=== PATIENT | male | born 1990 | race African-American/Black ===

== ENCOUNTER 2016-12-16 18:43 | Inpatient (IN) | payer MEDICAID ==
[~2016-12-16] VITALS: Ht 177.8 cm; Wt 87.7 kg
[2016-12-16] VITALS (11 sets, daily range): BP systolic 87–155; BP diastolic 50–82; PULSE 80–101; RESP 16–18; TEMP 98.2–99; O2SAT 89–100
[~2016-12-16 18:43] MED LIST: SODIUM BICARBONATE 8.4% INJ 50 MEQ/50 ML SYR IV ONE
[2016-12-16] MEDS ORDERED: NOREPINEPHRINE 4 MG/4 ML AMP ONE (18:48)
[2016-12-16 18:54] LABS: MEAN CORPUSCULAR HGB CONC 28.4 % (32.0-36.0)
[2016-12-16] MEDS ORDERED: PIPERACIL-TAZO 4.5 GM PREMIX 100 ML IV ONE (19:00)
[2016-12-16] MEDS ORDERED: SODIUM CHLOR 0.9% 1000 ML INJ 1,000 ML IV ONE (19:00)
[2016-12-16] MEDS ORDERED: VANCOMYCIN INJ 1,000 MG in SODIUM CHLOR 0.9% 250 ML INJ 250 ML IV ONE (19:00)
[2016-12-16] MEDS ORDERED: MIDAZOLAM 100 MG/ML INJ 100 ML ONE (19:04)
[2016-12-16 19:29] LABS: AUTOMATED NEUTROPHIL # 1.9 TH/MM3 (1.8-7.7); BASOPHIL % 0.3 % (0.0-2.0); EOSINOPHIL # 0.1 TH/MM3 (0-0.4); EOSINOPHIL % 1.7 % (0.0-4.0); HEMATOCRIT 56.4 % (39.0-51.0); LYMPH % 56.4 % (9.0-44.0); LYMPHOCYTE # 3.3 TH/MM3 (1.0-4.8); MEAN CELL VOLUME 100.2 FL (80.0-100.0); MEAN CORPUSCULAR HEMOGLOBIN 28.4 PG (27.0-34.0); MONO % 9.2 % (0.0-8.0); NEUT % 32.4 % (16.0-70.0); PLATELET COUNT 200 TH/MM3 (150-450); RED BLOOD COUNT 5.62 MIL/MM3 (4.50-5.90); RED CELL DISTRIBUTION WIDTH 16.3 % (11.6-17.2); WHITE BLOOD COUNT 5.9 TH/MM3 (4.0-11.0)
[2016-12-16] MEDS ORDERED: NOREPINEPHRINE-DEXTROSE DRIP 250 ML IV SCH (19:30)
[2016-12-16] MEDS ORDERED: TERBUTALINE INJ 1 MG/ML AMP SQ PRN (19:30)
[2016-12-16] MEDS ORDERED: MIDAZOLAM 100 MG/ML INJ 100 ML IV SCH (19:30)
[2016-12-16 19:34] LABS: HEMO FLAGS AUTO DIFF
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
[2016-12-16 19:41] LABS: BLOOD GAS BASE EXCESS -28.9 mmol/L (-2-2); BLOOD GAS HCO3 4 mmol/L (22-26); BLOOD GAS METHEMOGLOBIN 0.9 % (0-2); BLOOD GAS O2 HGB SATURATION 98 % (90-100); BLOOD GAS OXYGEN CONTENT 22.3 Vol % (12.0-20.0); BLOOD GAS PCO2 42 mmHg (38-42); BLOOD GAS PO2 417 mmHG (61-120); BLOOD GAS TOTAL HGB 15.7 G/DL (12.0-16.0); CRITICAL VALUE YES; OXYGEN DEVICE VENTILATOR; TEMP CORR TO 98.6
[2016-12-16 19:42] LABS: DRAW SITE RT RADIAL; FIO2 100 %; NUMBER OF ARTERIAL PUNCTURES 1; STAT YES; ULNAR PULSE PRESENT
[2016-12-16] MEDS ORDERED: SODIUM BICARBONATE 8.4% INJ 50 MEQ/50 ML SYR IV PUSH ONE (19:45)
[2016-12-16 19:46] LABS: APTT (PATIENT) 49.9 SEC (24.3-30.1); PROTHROMBIN TIME - PATIENT 11.4 SEC (9.8-11.6)
[2016-12-16 19:51] LABS: BACTERIA, URINE MANY /hpf; BLOOD, URINE NEG (NEG); GLUCOSE,URINE NEG (NEG); KETONE, URINE NEG (NEG); MUCUS URINE FEW /lpf (OCC); NITRITE,URINE NEG (NEG); PH, URINE 5.5 (5.0-8.5); URINE COLOR YELLOW (YELLW/STRAW)
[2016-12-16 19:52] LABS: COMMENT (UR) CATH-CULTURE IND; CULTURE IF INDICATED CATH CULTURE IND
[2016-12-16 20:00] LABS: PLATELET ESTIMATE SMEAR NORMAL (NORMAL); PLATELET MORPHOLOGY NORMAL (NORMAL); SCAN/DIFF AUTO DIFF CONFIRMED
[2016-12-16] MEDS ORDERED: CALCIUM GLUCONATE 10% 1 GM/10 ML VIAL IV PUSH ONE (20:00)
[2016-12-16 20:06] LABS: ALKALINE PHOSPHATASE 63 U/L (45-117); ALT (GPT) 56 U/L (12-78); ANION GAP 33 MEQ/L (5-15); AST (GOT) 89 U/L (15-37); BICARBONATE 9.4 MEQ/L (21.0-32.0); BLOOD UREA NITROGEN 20 MG/DL (7-18); CHLORIDE 108 MEQ/L (98-107); CREATINE KINASE 1738 U/L (39-308); GLOMERULAR FILTRATION RATE 30 ML/MIN (>89); MAGNESIUM 5.8 MG/DL (1.5-2.5); POTASSIUM 4.7 MEQ/L (3.5-5.1); SODIUM (NA) 150 MEQ/L (136-145); TOTAL BILIRUBIN ADULT 0.4 MG/DL (0.2-1.0)
[2016-12-16 20:09] LABS: AMPHETAMINE, URINE NEG (NEG); BARBITURATES, URINE NEG (NEG); COCAINE, URINE NEG (NEG)
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
[2016-12-16] MEDS ORDERED: MAGNESIUM SULFATE INJ 2 GM in SODIUM CHLORIDE 0.9% INJ 96 ML IV PRN (21:00)
[2016-12-16] MEDS ORDERED: CISATRACURIUM BESYLATE 20 MG/10 ML VIAL IVP ONE (21:00)
[2016-12-16] MEDS ORDERED: MAGNESIUM OXIDE 400 MG TAB PO PRN (21:00)
[2016-12-16] MEDS ORDERED: POTASSIUM CHLOR 40 MEQ PREMIX 100 ML IV PRN ×2 (21:00)
[2016-12-16] MEDS ORDERED: ACETAMINOPHEN 650 MG/20.3 ML UDC NG PRN (21:00)
[2016-12-16] MEDS ORDERED: SODIUM PHOSPHATE INJ 30 MMOL in SODIUM CHLOR 0.9% 250 ML INJ 240 ML IV PRN (21:00)
[2016-12-16] MEDS ORDERED: LORazepam 2 MG/ML VIAL IV PRN (21:00)
[2016-12-16] MEDS ORDERED: MAGNESIUM SULFATE INJ 4 GM in SODIUM CHLORIDE 0.9% INJ 92 ML IV PRN (21:00)
[2016-12-16] MEDS ORDERED: MEPERIDINE HCL 25 MG/ML VIAL IVP PRN (21:00)
[2016-12-16] MEDS ORDERED: NOREPINEPHRINE INJ 4 MG in SODIUM CHLOR 0.9% 250 ML INJ 246 ML IV SCH (21:00)
[2016-12-16] MEDS ORDERED: MISCELLANEOUS NURSING INFORMATION XX SCH (21:00)
[2016-12-16] MEDS ORDERED: CHLORHEXIDINE GLUCONATE 2 % 1 PACK (2 CLOTHS) TOP PRN (21:00)
[2016-12-16] MEDS ORDERED: POTASSIUM PHOSPHATE MONOBASIC 500 MG TAB PO/TUBE PRN (21:00)
[2016-12-16] MEDS ORDERED: POTASSIUM CHLORIDE 25 MEQ EFFERVESCENT TAB PO PRN (21:00)
[2016-12-16] MEDS ORDERED: ARTIFICIAL TEARS OPTH OINT 3.5 APPLIC/3.5 GM TUBO EACH EYE PRN (21:00)
[2016-12-16] MEDS ORDERED: POTASSIUM CHLOR 20 MEQ PREMIX 100 ML IV PRN ×2 (21:00)
[2016-12-16] MEDS ORDERED: POTASSIUM PHOSPHATE MONOBASIC 500 MG TAB PO PRN (21:00)
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
[2016-12-16] MEDS ORDERED: levETIRAcetam INJ 1,000 MG in SODIUM CHLORIDE 0.9% INJ 100 ML IV ONE ×2 (21:15→23:15)
[2016-12-16 21:17] LABS: LACTIC ACID GHOST NOT REPORTABLE
[2016-12-16 21:56] LABS: BLOOD GAS BASE EXCESS -4.7 mmol/L (-2-2); BLOOD GAS CARBOXYHEMOGLOBIN 0.3 % (0-4); BLOOD GAS HCO3 21 mmol/L (22-26); BLOOD GAS METHEMOGLOBIN 0.9 % (0-2); BLOOD GAS O2 HGB SATURATION 95 % (90-100); BLOOD GAS OXYGEN CONTENT 24.1 Vol % (12.0-20.0); BLOOD GAS PCO2 50 mmHg (38-42); BLOOD GAS PO2 108 mmHg (61-120); TEMP CORR TO 98.6
[2016-12-16 21:57] LABS: CRITICAL VALUE YES; DRAW SITE ALINE; FIO2 70 %; OXYGEN DEVICE VENTILATOR; STAT YES; ULNAR PULSE PRESENT; VENT SETTINGS PRVC24/400/0.85/+10
[2016-12-16] MEDS ORDERED: ENOXAPARIN SODIUM 40 MG/0.4 ML SYRINGE SQ SCH (22:00)
[2016-12-16] MEDS: PROPOFOL 1000 MG/100 ML INJ 100 ML IV SCH (22:48)
[2016-12-16] MEDS: CISATRACURIUM INJ 100 MG in SODIUM CHLOR 0.9% 250 ML INJ 240 ML IV SCH (22:48)
[2016-12-16] MEDS: SODIUM BICARBONATE 8.4% INJ 150 MEQ in WATER STERILE FOR INJ 850 ML IV SCH (22:49)
[2016-12-16 23:05] LABS: BICARBONATE 21.6 MEQ/L (21.0-32.0); MAGNESIUM 6.9 MG/DL (1.5-2.5)
[2016-12-16 23:06] LABS: POTASSIUM 3.9 MEQ/L (3.5-5.1)
[2016-12-17] VITALS (16 sets, daily range): BP systolic 108–122; BP diastolic 55–78; PULSE 72–95; RESP 20–22; TEMP 91.4; O2SAT 93–100
--- NOTE | 2016-12-17 00:47 | PD.PROCEDR ---
Procedure Note Procedure DX: Cardiac Arrest OP: 1. Insertsion Right Femoral Vein Hypothermia Catheter (74667) 2. Insertion Right Common Femoral Artery Line ([id number]) Procedure: Right groin prepped and draped. Right common femoral vein cannulated, dilated, and wire passed. Cooling catheter passed over wire to 40 cm. Lumens aspirated and flushed. Right common femoral artery cannulated with 20 gauge needle, wire advancedm and cannula inserted to 12 cm. Good waveform observed. Dressing applied to both. Posterior tibial pulse palpable right foot after procedure. Feliz Diana MD Dec 17, 2016 00:47
[2016-12-17 03:36] LABS: BICARBONATE 22.5 MEQ/L (21.0-32.0); MAGNESIUM 5.4 MG/DL (1.5-2.5)
[2016-12-17 03:37] LABS: POTASSIUM 3.4 MEQ/L (3.5-5.1)
[2016-12-17] MEDS: CHLORHEXIDINE GLUCONATE 2 % 1 PACK (2 CLOTHS) TOP SCH (04:00)
[2016-12-17] MEDS: SODIUM BICARBONATE 8.4% INJ 150 MEQ in WATER STERILE FOR INJ 850 ML IV SCH ×3 (04:20→17:50)
[2016-12-17] MEDS: CISATRACURIUM INJ 100 MG in SODIUM CHLOR 0.9% 250 ML INJ 240 ML IV SCH ×3 (04:20→17:49)
[2016-12-17 05:01] LABS: BLOOD GAS BASE EXCESS -5.2 mmol/L (-2-2); BLOOD GAS CARBOXYHEMOGLOBIN 0.3 % (0-4); BLOOD GAS HCO3 21 mmol/L (22-26); BLOOD GAS METHEMOGLOBIN 0.8 % (0-2); BLOOD GAS O2 HGB SATURATION 97 % (90-100); BLOOD GAS OXYGEN CONTENT 25.2 Vol % (12.0-20.0); BLOOD GAS PCO2 47 mmHg (38-42); BLOOD GAS PO2 131 mmHg (61-120); BLOOD GAS TOTAL HGB 18.4 G/DL (12.0-16.0); TEMP CORR TO 98.6
[2016-12-17 05:02] LABS: CRITICAL VALUE YES; DRAW SITE ALINE; FIO2 100 %; OXYGEN DEVICE VENTILATOR; STAT NO; ULNAR PULSE PRESENT; VENT SETTINGS PRVC20/450/+10/0.85
[2016-12-17] MEDS ORDERED: PIPERACIL-TAZO 4.5 GM PREMIX 100 ML IV SCH (08:00)
[2016-12-17] MEDS: RESP: ALBUTEROL 2.5 MG/IPRATROPIUM 0.5 MG NEB (SCH) NEB ×3 (09:35→20:28)
[2016-12-17] MEDS: PROPOFOL 1000 MG/100 ML INJ 100 ML IV SCH ×2 (10:16→15:49)
[2016-12-17] MEDS: levETIRAcetam INJ 500 MG in SODIUM CHLORIDE 0.9% INJ 100 ML IV SCH ×2 (10:16→19:58)
[2016-12-17 11:32] LABS: BICARBONATE 20.9 MEQ/L (21.0-32.0)
[2016-12-17 11:33] LABS: POTASSIUM 3.5 MEQ/L (3.5-5.1)
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
[2016-12-17] MEDS: fentaNYL 2,500 MCG/NS 250 ML IV SCH (15:49)
[2016-12-17] MEDS ORDERED: PANTOPRAZOLE INJ 80 MG in SODIUM CHLORIDE 0.9% INJ 35 ML IV ONE (17:00)
[2016-12-17 17:48] LABS: AUTOMATED NEUTROPHIL # 7.6 TH/MM3 (1.8-7.7); BASOPHIL % 0.1 % (0.0-2.0); HEMATOCRIT 52.7 % (39.0-51.0); LYMPH % 3.6 % (9.0-44.0); LYMPHOCYTE # 0.3 TH/MM3 (1.0-4.8); MEAN CELL VOLUME 84.8 FL (80.0-100.0); MEAN CORPUSCULAR HGB CONC 34.1 % (32.0-36.0); MONO % 3.4 % (0.0-8.0); NEUT % 92.9 % (16.0-70.0); PLATELET COUNT 140 TH/MM3 (150-450); RED BLOOD COUNT 6.21 MIL/MM3 (4.50-5.90); RED CELL DISTRIBUTION WIDTH 14.8 % (11.6-17.2); WHITE BLOOD COUNT 8.2 TH/MM3 (4.0-11.0)
[2016-12-17 17:50] LABS: HEMO FLAGS AUTO DIFF
[2016-12-17] MEDS: PANTOPRAZOLE INJ 80 MG in SODIUM CHLORIDE 0.9% INJ 100 ML IV SCH (17:50)
[2016-12-17 17:59] LABS: APTT (PATIENT) 29.5 SEC (24.3-30.1); INTERNATIONAL NORMALIZED RATIO 1.2 RATIO; PROTHROMBIN TIME - PATIENT 13.6 SEC (9.8-11.6)
[2016-12-17] MEDS: PIPERACIL-TAZO 2.25 GM PREMIX 50 ML IV SCH (18:11)
[2016-12-17 18:29] LABS: BANDS 23 % (0-6); METAMYELOCYTES 1 % (0-1); NEUTROPHIL # MANUAL DIFF 7.6 TH/MM3 (1.8-7.7); PLATELET ESTIMATE SMEAR LOW (NORMAL); PLATELET MORPHOLOGY NORMAL (NORMAL); POLYS (SEG NEUTROPHILS) 69 % (16-70); SCAN/DIFF FINAL DIFF MANUAL; WBC DIFF SAMPLE 100
[2016-12-17 22:07] LABS: BICARBONATE 21.5 MEQ/L (21.0-32.0); POTASSIUM 3.8 MEQ/L (3.5-5.1)
[2016-12-17 22:23] LABS: CALCIUM-PROTEIN CORRECTED 7.3 MG/DL (8.5-10.1)
--- NOTE | 2016-12-17 22:41 | EKG ---
Date Performed: 12/16/2016 Time Performed: 19:04:51 PTAGE: 89 years EKG: Sinus rhythm MILD ST DEPRESSION PEAKED T WAVES ABNORMAL ECG NO PREVIOUS TRACING DOCTOR: Roxane Segura Interpretating Date/Time 12/17/2016 22:39:42
[2016-12-17] MEDS ORDERED: SODIUM CHLOR 0.9% 1000 ML INJ 1,000 ML IV ONE (23:45)
[2016-12-18] VITALS (14 sets, daily range): BP systolic 118–150; BP diastolic 66–97; PULSE 82–117; RESP 22; TEMP 91.4–97.5; O2SAT 95–100
[2016-12-18] MEDS: CISATRACURIUM INJ 100 MG in SODIUM CHLOR 0.9% 250 ML INJ 240 ML IV SCH ×3 (00:29→11:14)
[2016-12-18] MEDS: SODIUM BICARBONATE 8.4% INJ 150 MEQ in WATER STERILE FOR INJ 850 ML IV SCH ×2 (00:29→06:16)
[2016-12-18] MEDS: PIPERACIL-TAZO 2.25 GM PREMIX 50 ML IV SCH ×3 (01:23→18:07)
[2016-12-18] MEDS: PANTOPRAZOLE INJ 80 MG in SODIUM CHLORIDE 0.9% INJ 100 ML IV SCH ×3 (01:23→20:52)
[2016-12-18] MEDS: CHLORHEXIDINE GLUCONATE 2 % 1 PACK (2 CLOTHS) TOP SCH (04:00)
[2016-12-18] MEDS: RESP: ALBUTEROL 2.5 MG/IPRATROPIUM 0.5 MG NEB (SCH) NEB ×4 (04:06→21:36)
[2016-12-18 04:55] LABS: BLOOD GAS BASE EXCESS 0.6 mmol/L (-2-2); BLOOD GAS CARBOXYHEMOGLOBIN 0.8 % (0-4); BLOOD GAS HCO3 24 mmol/L (22-26); BLOOD GAS METHEMOGLOBIN 0.9 % (0-2); BLOOD GAS O2 HGB SATURATION 97 % (90-100); BLOOD GAS OXYGEN CONTENT 21.6 Vol % (12.0-20.0); BLOOD GAS PCO2 33 mmHg (38-42); BLOOD GAS PO2 126 mmHg (61-120); BLOOD GAS TOTAL HGB 15.7 G/DL (12.0-16.0); CRITICAL VALUE NO; DRAW SITE ALINE; FIO2 50 %; OXYGEN DEVICE VENTILATOR; STAT NO; TEMP CORR TO 98.6; ULNAR PULSE PRESENT; VENT SETTINGS PRVC22/450/0.85/+10
[2016-12-18 07:08] LABS: AUTOMATED NEUTROPHIL # 7.1 TH/MM3 (1.8-7.7); BASOPHIL % 0.1 % (0.0-2.0); HEMATOCRIT 44.5 % (39.0-51.0); LYMPH % 5.9 % (9.0-44.0); LYMPHOCYTE # 0.5 TH/MM3 (1.0-4.8); MEAN CELL VOLUME 83.4 FL (80.0-100.0); MEAN CORPUSCULAR HEMOGLOBIN 28.8 PG (27.0-34.0); MEAN CORPUSCULAR HGB CONC 34.5 % (32.0-36.0); MONO % 4.4 % (0.0-8.0); NEUT % 89.6 % (16.0-70.0); PLATELET COUNT 119 TH/MM3 (150-450); RED BLOOD COUNT 5.34 MIL/MM3 (4.50-5.90); RED CELL DISTRIBUTION WIDTH 15.1 % (11.6-17.2); WHITE BLOOD COUNT 7.9 TH/MM3 (4.0-11.0)
[2016-12-18 07:09] LABS: HEMO FLAGS AUTO DIFF
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
[2016-12-18 07:36] LABS: BICARBONATE 27.1 MEQ/L (21.0-32.0); POTASSIUM 3.3 MEQ/L (3.5-5.1); TOTAL BILIRUBIN ADULT 0.8 MG/DL (0.2-1.0)
[2016-12-18 07:44] LABS: CALCIUM-PROTEIN CORRECTED 7.1 MG/DL (8.5-10.1)
[2016-12-18 07:51] LABS: BANDS 28 % (0-6); CORRECTED NUCLEATED RBC 1 /100 WBC (0-0); NEUTROPHIL # MANUAL DIFF 7.1 TH/MM3 (1.8-7.7); POLYS (SEG NEUTROPHILS) 62 % (16-70); WBC DIFF SAMPLE 100
[2016-12-18 07:52] LABS: PLATELET ESTIMATE SMEAR LOW (NORMAL); PLATELET MORPHOLOGY NORMAL (NORMAL); SCAN/DIFF FINAL DIFF MANUAL
[2016-12-18] MEDS ORDERED: SODIUM CHLOR 0.9% 1000 ML INJ 1,000 ML IV ONE (08:00)
[2016-12-18 08:01] LABS: MAGNESIUM 3.4 MG/DL (1.5-2.5)
[2016-12-18] MEDS ORDERED: CALCIUM GLUCONATE INJ 2 GM in SODIUM CHLORIDE 0.9% INJ 100 ML IV ONE (08:15)
[2016-12-18] MEDS: levETIRAcetam INJ 500 MG in SODIUM CHLORIDE 0.9% INJ 100 ML IV SCH ×2 (08:31→20:04)
[2016-12-18 10:23] LABS: C. DIFF EPI 027 PRESUMPTIVE NEGATIVE (NEGATIVE); C. DIFF TOXIN PCR NEGATIVE (NEGATIVE)
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
[2016-12-18 14:48] LABS: BICARBONATE 28.7 MEQ/L (21.0-32.0); CALCIUM-PROTEIN CORRECTED 7.5 MG/DL (8.5-10.1); POTASSIUM 3.2 MEQ/L (3.5-5.1); TOTAL BILIRUBIN ADULT 0.8 MG/DL (0.2-1.0)
[2016-12-18] MEDS: PROPOFOL 1000 MG/100 ML INJ 100 ML IV SCH ×2 (15:36→20:05)
[2016-12-18] MEDS ORDERED: LORazepam 2 MG/ML VIAL IV ONE (15:45)
[2016-12-18] MEDS: fentaNYL 2,500 MCG/NS 250 ML IV SCH (20:05)
[2016-12-19] VITALS (15 sets, daily range): BP systolic 112–158; BP diastolic 56–96; PULSE 101–120; RESP 22; TEMP 97.9–98.2; O2SAT 97–100
[2016-12-19] MEDS: PROPOFOL 1000 MG/100 ML INJ 100 ML IV SCH ×4 (00:23→11:35)
[2016-12-19] MEDS: PIPERACIL-TAZO 2.25 GM PREMIX 50 ML IV SCH ×3 (00:24→17:04)
[2016-12-19] MEDS: RESP: ALBUTEROL 2.5 MG/IPRATROPIUM 0.5 MG NEB (SCH) NEB ×4 (03:30→20:41)
[2016-12-19] MEDS: CHLORHEXIDINE GLUCONATE 2 % 1 PACK (2 CLOTHS) TOP SCH (04:00)
--- NOTE | 2016-12-19 05:41 | RADRPT ---
EXAM DATE/TIME: 12/19/2016 05:02 [facility] COMPARISON: CHEST SINGLE AP, December 18, 2016, 6:51. INDICATIONS : Respiratory distress. MEDICAL HISTORY : None. SURGICAL HISTORY : None. ENCOUNTER: Subsequent ACUITY: 3 days PAIN SCORE: Non-responsive. LOCATION: Bilateral chest FINDINGS: The cardiac silhouette is normal in transverse diameter. Support lines and tubes are in satisfactory position. The left lung is free of acute parenchymal opacity. There is patchy alveolar disease on the right compatible with edema or pneumonia. CONCLUSION: 1. Diffuse right-sided edema versus pneumonia. The findings have worsened when compared with the prio r examination. Fermin Ross MD on December 19, 2016 at 5:39 Board Certified Radiologist. This report was verified electronically.
[2016-12-19 06:24] LABS: AUTOMATED NEUTROPHIL # 9.1 TH/MM3 (1.8-7.7); BASOPHIL # 0.1 TH/MM3 (0-0.2); BASOPHIL % 0.5 % (0.0-2.0); EOSINOPHIL % 0.2 % (0.0-4.0); HEMATOCRIT 43.3 % (39.0-51.0); LYMPH % 7.9 % (9.0-44.0); LYMPHOCYTE # 0.8 TH/MM3 (1.0-4.8); MEAN CELL VOLUME 83.8 FL (80.0-100.0); MEAN CORPUSCULAR HEMOGLOBIN 28.7 PG (27.0-34.0); MEAN CORPUSCULAR HGB CONC 34.2 % (32.0-36.0); MONO % 3.7 % (0.0-8.0); NEUT % 87.7 % (16.0-70.0); PLATELET COUNT 96 TH/MM3 (150-450); RED BLOOD COUNT 5.16 MIL/MM3 (4.50-5.90); RED CELL DISTRIBUTION WIDTH 15.2 % (11.6-17.2); WHITE BLOOD COUNT 10.3 TH/MM3 (4.0-11.0)
[2016-12-19 06:29] LABS: HEMO FLAGS AUTO DIFF
[2016-12-19 06:58] LABS: MAGNESIUM 2.6 MG/DL (1.5-2.5); POTASSIUM 4.1 MEQ/L (3.5-5.1); TOTAL BILIRUBIN ADULT 0.7 MG/DL (0.2-1.0)
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
[2016-12-19 07:05] LABS: CALCIUM-PROTEIN CORRECTED 6.8 MG/DL (8.5-10.1)
[2016-12-19] MEDS: fentaNYL 2,500 MCG/NS 250 ML IV SCH (07:56)
[2016-12-19] MEDS: levETIRAcetam INJ 500 MG in SODIUM CHLORIDE 0.9% INJ 100 ML IV SCH ×2 (07:56→08:00)
[2016-12-19] MEDS: PANTOPRAZOLE INJ 80 MG in SODIUM CHLORIDE 0.9% INJ 100 ML IV SCH (07:56)
[2016-12-19 08:49] LABS: BANDS 31 % (0-6); METAMYELOCYTES 42 % (0-1); MYELOCYTES 4 % (0-0); POLYS (SEG NEUTROPHILS) 20 % (16-70); WBC DIFF SAMPLE 100
[2016-12-19 08:50] LABS: PLATELET ESTIMATE SMEAR LOW (NORMAL); PLATELET MORPHOLOGY NORMAL (NORMAL); SCAN/DIFF FINAL DIFF MANUAL
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
[2016-12-19] MEDS ORDERED: CALCIUM GLUCONATE IV ONE (14:00)
[2016-12-19] MEDS ORDERED: SODIUM CHLORIDE 0.9% IV ONE (14:00)
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
[2016-12-19] MEDS: LABETALOL HCL 100 MG/20 ML VIAL IV PUSH PRN (16:19)
[2016-12-19] MEDS: BUMETANIDE INJ 1 MG/4 ML VIAL IV PUSH SCH (17:04)
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
[2016-12-19] MEDS: hydrALAZINE HCL 20 MG/ML VIAL IV PUSH PRN (23:51)
[2016-12-20] VITALS (16 sets, daily range): BP systolic 125–172; BP diastolic 74–97; PULSE 89–116; RESP 22–27; TEMP 97.9–98.8; O2SAT 93–100
[2016-12-20] MEDS: PIPERACIL-TAZO 2.25 GM PREMIX 50 ML IV SCH ×3 (01:46→18:42)
[2016-12-20] MEDS: RESP: ALBUTEROL 2.5 MG/IPRATROPIUM 0.5 MG NEB (SCH) NEB ×4 (03:21→20:34)
[2016-12-20] MEDS: CHLORHEXIDINE GLUCONATE 2 % 1 PACK (2 CLOTHS) TOP SCH (04:00)
[2016-12-20 05:41] LABS: BICARBONATE 26.2 MEQ/L (21.0-32.0); POTASSIUM 3.8 MEQ/L (3.5-5.1)
[2016-12-20] MEDS: LABETALOL HCL 100 MG/20 ML VIAL IV PUSH PRN (06:00)
[2016-12-20 06:19] LABS: CALCIUM-PROTEIN CORRECTED 7.9 MG/DL (8.5-10.1)
[2016-12-20] MEDS: BUMETANIDE INJ 1 MG/4 ML VIAL IV PUSH SCH ×2 (08:27→18:42)
[2016-12-20] MEDS: levETIRAcetam INJ 500 MG in SODIUM CHLORIDE 0.9% INJ 100 ML IV SCH ×2 (08:27→19:54)
[2016-12-20] MEDS: hydrALAZINE HCL 20 MG/ML VIAL IV PUSH PRN (08:37)
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
[2016-12-20] MEDS: LABETALOL HCL 200 MG TAB PO SCH ×2 (10:45→18:42)
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
[2016-12-20 11:58] LABS: CALCIUM-PROTEIN CORRECTED 7.7 MG/DL (8.5-10.1); POTASSIUM 4.2 MEQ/L (3.5-5.1); TOTAL BILIRUBIN ADULT 0.8 MG/DL (0.2-1.0)
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
[2016-12-20] MEDS ORDERED: SODIUM CHLOR 0.9% 1000 ML INJ 1,000 ML IV PRN ×2 (14:58)
[2016-12-20] MEDS ORDERED: HEPARIN SODIUM - IV 10,000 UNITS/10 ML VIAL IVF PRN (15:00)
[2016-12-20] MEDS ORDERED: cloNIDine HCL 0.1 MG TAB PO PRN (15:00)
[2016-12-20] MEDS ORDERED: SODIUM CHLORIDE 0.9% FLUSH 10 ML FLUSH IV FLUSH PRN (15:00)
[2016-12-20] MEDS ORDERED: NITROGLYCERIN 0.4 MG SL 25 TABS/BTL SL PRN (15:00)
[2016-12-20] MEDS ORDERED: ONDANSETRON HCL 4 MG/2 ML VIAL IV PRN (15:00)
[2016-12-20] MEDS ORDERED: GELATIN 12 MM/7 MM FOAM TOP PRN (15:00)
[2016-12-20] MEDS ORDERED: diphenhydrAMINE HCL 25 MG CAP PO PRN (15:00)
[2016-12-20] MEDS ORDERED: ACETAMINOPHEN 325 MG TAB PO PRN (15:00)
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
--- NOTE | 2016-12-20 16:47 | HHI.PR ---
Subjective Remarks Follow up exam Informed change in pupil size by nurse. S/P MRI brain Off sedation. Objective Vital Signs Date Time Temp Pulse Resp B/P Pulse Ox O2 Delivery O2 Flow Rate FiO2 12/20/16 16:00 98.1 107 27 143/79 98 12/20/16 16:00 35 12/20/16 15:00 104 12/20/16 13:40 100 100 12/20/16 12:00 35 12/20/16 12:00 98.6 110 22 145/79 93 12/20/16 11:51 93 40 12/20/16 08:00 98.2 98 25 172/97 95 12/20/16 08:00 96 35 12/20/16 08:00 35 12/20/16 07:00 97 12/20/16 06:18 100 35 12/20/16 04:00 40 12/20/16 04:00 98.2 89 22 169/96 100 12/20/16 03:23 100 35 12/20/16 00:08 97 40 12/20/16 00:00 40 12/20/16 00:00 97.9 116 22 158/92 98 12/19/16 23:00 114 12/19/16 20:47 100 40 12/19/16 20:00 97.9 106 22 158/96 100 12/19/16 20:00 40 12/19/16 16:44 100 40 I/O 12/19/16 12/19/16 12/19/16 12/20/16 12/20/16 12/20/16 07:00 15:00 23:00 07:00 15:00 23:00 Intake Total 651 ml 586 ml 272 ml 78 ml 223 ml Output Total 350 ml 150 ml 350 ml 500 ml 650 ml Balance 301 ml 436 ml -78 ml -422 ml -427 ml Intake IV Total 651 ml 586 ml 272 ml 78 ml 173 ml Tube Irrigant 50 ml Output Urine Total 200 ml 150 ml 350 ml 500 ml 500 ml Stool Total 100 ml 0 ml 0 ml 0 ml 150 ml Gastric Drainage Total 50 ml 0 ml 0 ml 0 ml pt is intubated on the vent.off sedation left pupil 4mm nr right pupil 6mm nr overbreaths the vent 1-2 breaths left corneal only no ocr no w/d pain in ue no spontaneous eye opening does not follow commands minimal w/d toes feet with noxious stimuli tone decreased Result Diagram: 12/19/16 0611 12/20/16 1105 Imaging mri brain c/w global anoxic injury eeg c/w bipleds,no seizures. Assessment and Plan Assessment and Plan severe anoxic encephalopathy -given the exam of the patient there is no recovery neurologically from this event.Patient likely will progress to brain . Yesenia Reyes MD December 20, 2016 16:47
--- NOTE | 2016-12-20 21:40 | PD.PROCEDR ---
Procedure Note Procedure HD Left IJ A time-out was completed verifying correct patient, procedure, site, positioning , and special equipment if applicable. The patient was placed in a dependent position appropriate for central line placement based on the vein to be cannulated. The patients left neck was prepped and draped in sterile fashion. 1 % Lidocaine was used to anesthetize the surrounding skin area. A double lumen hemodialysis catheter was introduced into the the internal jugular vein using the Seldinger technique and under ultrasound guidance. The catheter was threaded smoothly over the guide wire and appropriate blood return was obtained. Each lumen of the catheter was evacuated of air and flushed with sterile saline. The catheter was then sutured in place to the skin and a sterile dressing applied. Perfusion to the extremity distal to the point of catheter insertion was checked and found to be adequate. Estimated Blood Loss: 1ml The patient tolerated the procedure well and there were no complications. Sumanth Avalos MD December 20, 2016 21:40
--- NOTE | 2016-12-20 21:59 | RADRPT ---
EXAM DATE/TIME: 12/20/2016 21:43 [facility] COMPARISON: CHEST SINGLE AP, December 19, 2016, 5:02. INDICATIONS : Central line placement. MEDICAL HISTORY : None. SURGICAL HISTORY : None. ENCOUNTER: Subsequent ACUITY: 4 - 6 days PAIN SCORE: Non-responsive. LOCATION: Bilateral chest FINDINGS: A single view of the chest demonstrates the lungs to be symmetrically aerated without evidence of mas s or effusion. There is mild patchy opacity in the perihilar regions and lung bases. There is been in terval placement of a left internal jugular central venous line with the tip projected over the super ior vena cava. There is no pneumothorax. The cardiomediastinal contours are unremarkable. Osseous st ructures are intact. CONCLUSION: 1. Interval placement of left internal jugular central venous line with no pneumothorax. 2. Mild hazy opacity in the perihilar regions and lung bases. Darion Alejandro MD on December 20, 2016 at 21:56 Board Certified Radiologist. This report was verified electronically.
[2016-12-21] VITALS (17 sets, daily range): BP systolic 120–162; BP diastolic 73–98; PULSE 96–109; RESP 18–30; TEMP 97.5–98.8; O2SAT 98–100
[2016-12-21] MEDS: PIPERACIL-TAZO 2.25 GM PREMIX 50 ML IV SCH ×3 (02:54→17:22)
[2016-12-21] MEDS: LABETALOL HCL 200 MG TAB PO SCH ×3 (02:55→18:02)
[2016-12-21] MEDS: RESP: ALBUTEROL 2.5 MG/IPRATROPIUM 0.5 MG NEB (SCH) NEB ×2 (03:23→08:08)
[2016-12-21] MEDS: CHLORHEXIDINE GLUCONATE 2 % 1 PACK (2 CLOTHS) TOP SCH (04:00)
[2016-12-21 07:42] LABS: BICARBONATE 26.8 MEQ/L (21.0-32.0); POTASSIUM 4.3 MEQ/L (3.5-5.1)
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
[2016-12-21] MEDS: BUMETANIDE INJ 1 MG/4 ML VIAL IV PUSH SCH ×2 (09:00→17:22)
[2016-12-21] MEDS: GENTAMICIN SULFATE (DIALYSIS USE ONLY) 20 MG/2 ML VIAL IV PRN (10:53)
[2016-12-21] MEDS: HEPARIN SODIUM - IV 10,000 UNITS/10 ML VIAL PRN (10:53)
[2016-12-21] MEDS: levETIRAcetam INJ 500 MG in SODIUM CHLORIDE 0.9% INJ 100 ML IV SCH ×2 (11:43→20:10)
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
[2016-12-21] MEDS: hydrALAZINE HCL 20 MG/ML VIAL IV PUSH PRN ×2 (16:43→21:53)
[2016-12-22] VITALS (14 sets, daily range): BP systolic 128–175; BP diastolic 73–97; PULSE 96–107; RESP 18; TEMP 97.3–98.2; O2SAT 92–100
[2016-12-22] MEDS: PIPERACIL-TAZO 2.25 GM PREMIX 50 ML IV SCH ×3 (01:07→17:49)
[2016-12-22] MEDS: LABETALOL HCL 200 MG TAB PO SCH ×3 (01:13→18:14)
[2016-12-22] MEDS: CHLORHEXIDINE GLUCONATE 2 % 1 PACK (2 CLOTHS) TOP SCH (04:00)
[2016-12-22 06:39] LABS: BICARBONATE 27.8 MEQ/L (21.0-32.0); POTASSIUM 4.1 MEQ/L (3.5-5.1)
[2016-12-22] MEDS: BUMETANIDE INJ 1 MG/4 ML VIAL IV PUSH SCH ×2 (08:27→17:49)
[2016-12-22] MEDS: levETIRAcetam INJ 500 MG in SODIUM CHLORIDE 0.9% INJ 100 ML IV SCH ×2 (08:28→20:24)
[2016-12-22] MEDS: LABETALOL HCL 100 MG/20 ML VIAL IV PUSH PRN (08:37)
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
[2016-12-22] MEDS: MANNITOL 12.5 GM/50 ML VIAL IV PRN (09:53)
[2016-12-22] MEDS: ALBUMIN HUMAN 25% 25 GM/100 ML BAGP IV PRN ×2 (10:00→10:01)
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
[2016-12-22] MEDS: GENTAMICIN SULFATE (DIALYSIS USE ONLY) 20 MG/2 ML VIAL IV PRN (11:50)
[2016-12-22] MEDS: HEPARIN SODIUM - IV 10,000 UNITS/10 ML VIAL PRN (11:50)
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
[2016-12-23] VITALS (18 sets, daily range): BP systolic 110–128; BP diastolic 58–72; PULSE 94–105; RESP 12–18; TEMP 97.3–99.9; O2SAT 93–100
[2016-12-23] MEDS: PIPERACIL-TAZO 2.25 GM PREMIX 50 ML IV SCH ×3 (03:12→17:48)
[2016-12-23] MEDS: LABETALOL HCL 200 MG TAB PO SCH ×3 (03:14→18:30)
[2016-12-23] MEDS: RESP: ALBUTEROL 2.5 MG/IPRATROPIUM 0.5 MG NEB (PRN) NEB ×2 (03:49→20:12)
[2016-12-23] MEDS: CHLORHEXIDINE GLUCONATE 2 % 1 PACK (2 CLOTHS) TOP SCH (03:58)
[2016-12-23 06:21] LABS: BICARBONATE 28.2 MEQ/L (21.0-32.0); POTASSIUM 4.5 MEQ/L (3.5-5.1)
[2016-12-23] MEDS: BUMETANIDE INJ 1 MG/4 ML VIAL IV PUSH SCH (08:08)
[2016-12-23] MEDS: levETIRAcetam INJ 500 MG in SODIUM CHLORIDE 0.9% INJ 100 ML IV SCH ×2 (08:08→21:50)
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
[2016-12-23 12:02] LABS: AUTOMATED NEUTROPHIL # 7.7 TH/MM3 (1.8-7.7); BASOPHIL % 0.2 % (0.0-2.0); EOSINOPHIL # 0.3 TH/MM3 (0-0.4); EOSINOPHIL % 3.1 % (0.0-4.0); HEMATOCRIT 31.9 % (39.0-51.0); LYMPH % 7.6 % (9.0-44.0); LYMPHOCYTE # 0.7 TH/MM3 (1.0-4.8); MEAN CELL VOLUME 86.4 FL (80.0-100.0); MEAN CORPUSCULAR HEMOGLOBIN 29.5 PG (27.0-34.0); MEAN CORPUSCULAR HGB CONC 34.1 % (32.0-36.0); MONO % 5.9 % (0.0-8.0); NEUT % 83.2 % (16.0-70.0); PLATELET COUNT 93 TH/MM3 (150-450); RED BLOOD COUNT 3.69 MIL/MM3 (4.50-5.90); RED CELL DISTRIBUTION WIDTH 14.3 % (11.6-17.2); WHITE BLOOD COUNT 9.3 TH/MM3 (4.0-11.0)
[2016-12-23 12:03] LABS: HEMO FLAGS AUTO DIFF
[2016-12-23 12:10] LABS: BLOOD GAS BASE EXCESS 2.5 mmol/L (-2-2); BLOOD GAS CARBOXYHEMOGLOBIN 1.3 % (0-4); BLOOD GAS HCO3 27 mmol/L (22-26); BLOOD GAS METHEMOGLOBIN 0.9 % (0-2); BLOOD GAS O2 HGB SATURATION 94 % (90-100); BLOOD GAS OXYGEN CONTENT 14.4 Vol % (12.0-20.0); BLOOD GAS PCO2 49 mmHg (38-42); BLOOD GAS PO2 89 mmHg (61-120); BLOOD GAS TOTAL HGB 10.9 G/DL (12.0-16.0); CRITICAL VALUE NO; OXYGEN DEVICE VENTILATOR; TEMP CORR TO 98.6
[2016-12-23 12:11] LABS: DRAW SITE ART LINE; FIO2 35 %; STAT NO; VENT SETTINGS PRVC/AC
--- NOTE | 2016-12-23 12:13 | RADRPT ---
EXAM DATE/TIME: 12/23/2016 11:33 [facility] COMPARISON: CHEST SINGLE AP, December 20, 2016, 21:43. INDICATIONS : Shortness of breath MEDICAL HISTORY : None. SURGICAL HISTORY : None. ENCOUNTER: Subsequent ACUITY: 4 - 6 days PAIN SCORE: Non-responsive. LOCATION: Bilateral chest FINDINGS: A single AP erect view of the chest was obtained and again demonstrates an endotracheal tube in place with the tip 4 cm above the deysi. A nasogastric tube remains in place and is seen coursing through the esophagus and into the stomach. The left internal jugular central venous line remains in place. There is increased opacity in both lung bases and the costophrenic angles now appear blunted. The hea rt size is at the upper limits of normal. There are multiple overlying electrocardiogram leads. CONCLUSION: 1. Increased opacity at the lung bases with apparent bilateral effusions. 2. The patient remains intubated. Darion Alejandro MD on December 23, 2016 at 12:09 Board Certified Radiologist. This report was verified electronically.
[2016-12-23 12:19] LABS: ALT (GPT) 83 U/L (12-78); ANION GAP 13 MEQ/L (5-15); AST (GOT) 105 U/L (15-37); BICARBONATE 29.6 MEQ/L (21.0-32.0); BLOOD UREA NITROGEN 124 MG/DL (7-18); CHLORIDE 104 MEQ/L (98-107); GLOMERULAR FILTRATION RATE 5 ML/MIN (>89); POTASSIUM 4.8 MEQ/L (3.5-5.1); SODIUM (NA) 147 MEQ/L (136-145)
[2016-12-23 12:20] LABS: ALKALINE PHOSPHATASE 147 U/L (45-117); TOTAL BILIRUBIN ADULT 1.7 MG/DL (0.2-1.0)
[2016-12-23 12:37] LABS: BANDS 23 % (0-6); DOHLE BODIES PRESENT (NONE SEEN); EOSINOPHILS 4 % (0-4); METAMYELOCYTES 1 % (0-1); NEUTROPHIL # MANUAL DIFF 7.6 TH/MM3 (1.8-7.7); POLYS (SEG NEUTROPHILS) 58 % (16-70); WBC DIFF SAMPLE 100
[2016-12-23 12:38] LABS: PLATELET ESTIMATE SMEAR LOW (NORMAL); PLATELET MORPHOLOGY NORMAL (NORMAL); SCAN/DIFF FINAL DIFF MANUAL; TOXIC GRANULATION 1+ (NORMAL)
[2016-12-23] MEDS ORDERED: NOREPINEPHRINE 4 MG/D5W 250 ML IV SCH (15:00)
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
[2016-12-23] MEDS ORDERED: NOREPINEPHRINE 4 MG/4 ML AMP ONE (15:58)
[2016-12-24] VITALS (18 sets, daily range): BP systolic 100–143; BP diastolic 59–95; PULSE 94–120; RESP 12–18; TEMP 98.4–99.9; O2SAT 90–98
[2016-12-24] MEDS: LABETALOL HCL 200 MG TAB PO SCH ×3 (03:00→19:05)
[2016-12-24] MEDS: PIPERACIL-TAZO 2.25 GM PREMIX 50 ML IV SCH ×3 (03:11→17:57)
[2016-12-24] MEDS: CHLORHEXIDINE GLUCONATE 2 % 1 PACK (2 CLOTHS) TOP SCH (04:00)
[2016-12-24] MEDS: RESP: ALBUTEROL 2.5 MG/IPRATROPIUM 0.5 MG NEB (PRN) NEB ×2 (04:39→20:29)
[2016-12-24] MEDS: NOREPINEPHRINE 4 MG/NS 250 ML IV SCH ×4 (06:04→15:23)
[2016-12-24 07:32] LABS: AUTOMATED NEUTROPHIL # 10.6 TH/MM3 (1.8-7.7); BASOPHIL % 0.4 % (0.0-2.0); EOSINOPHIL # 0.2 TH/MM3 (0-0.4); EOSINOPHIL % 1.3 % (0.0-4.0); LYMPH % 4.8 % (9.0-44.0); LYMPHOCYTE # 0.6 TH/MM3 (1.0-4.8); MEAN CELL VOLUME 87.5 FL (80.0-100.0); MEAN CORPUSCULAR HEMOGLOBIN 28.4 PG (27.0-34.0); MEAN CORPUSCULAR HGB CONC 32.5 % (32.0-36.0); MONO % 5.1 % (0.0-8.0); NEUT % 88.4 % (16.0-70.0); PLATELET COUNT 114 TH/MM3 (150-450); RED BLOOD COUNT 3.89 MIL/MM3 (4.50-5.90); RED CELL DISTRIBUTION WIDTH 14.4 % (11.6-17.2)
[2016-12-24 07:37] LABS: HEMO FLAGS AUTO DIFF
[2016-12-24 08:18] LABS: BICARBONATE 28.9 MEQ/L (21.0-32.0); POTASSIUM 8.1 MEQ/L (3.5-5.1)
[2016-12-24] MEDS: levETIRAcetam INJ 500 MG in SODIUM CHLORIDE 0.9% INJ 100 ML IV SCH ×2 (08:18→21:49)
[2016-12-24] MEDS ORDERED: SODIUM BICARBONATE 8.4% INJ 50 MEQ/50 ML SYR IV ONE (09:00)
[2016-12-24] MEDS ORDERED: SODIUM BICARBONATE 8.4% SOLN 50 MEQ/50 ML VIAL IV ONE (09:00)
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
[2016-12-24 10:40] LABS: BANDS 16 % (0-6); CORRECTED NUCLEATED RBC 2 /100 WBC (0-0); EOSINOPHILS 2 % (0-4); MYELOCYTES 2 % (0-0); NEUTROPHIL # MANUAL DIFF 10.3 TH/MM3 (1.8-7.7); POLYS (SEG NEUTROPHILS) 68 % (16-70); WBC DIFF SAMPLE 100
[2016-12-24 10:41] LABS: DOHLE BODIES PRESENT (NONE SEEN)
[2016-12-24 10:42] LABS: PLATELET ESTIMATE SMEAR LOW (NORMAL); PLATELET MORPHOLOGY NORMAL (NORMAL); SCAN/DIFF FINAL DIFF MANUAL
[2016-12-24] MEDS ORDERED: SODIUM POLYSTYRENE SULFONATE SUSP 15 GM/60 ML CUP NG ONE (11:00)
[2016-12-24] MEDS: LABETALOL HCL 100 MG/20 ML VIAL IV PUSH PRN (14:47)
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
[2016-12-24 14:54] LABS: BLOOD GAS BASE EXCESS 1.5 mmol/L (-2-2); BLOOD GAS CARBOXYHEMOGLOBIN 0.9 % (0-4); BLOOD GAS HCO3 28 mmol/L (22-26); BLOOD GAS METHEMOGLOBIN 1.1 % (0-2); BLOOD GAS O2 HGB SATURATION 95 % (90-100); BLOOD GAS OXYGEN CONTENT 15.1 Vol % (12.0-20.0); BLOOD GAS PCO2 65 mmHg (38-42); BLOOD GAS PO2 99 mmHg (61-120); BLOOD GAS TOTAL HGB 11.2 G/DL (12.0-16.0); TEMP CORR TO 98.6
[2016-12-24 14:55] LABS: CRITICAL VALUE YES; OXYGEN DEVICE VENT
[2016-12-24 14:56] LABS: DRAW SITE ALINE; FIO2 100 %; STAT YES; VENT SETTINGS PRVC/12/450/10/.85IT
[2016-12-24 15:04] LABS: BICARBONATE 32.3 MEQ/L (21.0-32.0)
[2016-12-24 15:06] LABS: POTASSIUM 8.2 MEQ/L (3.5-5.1)
[2016-12-24 20:44] LABS: ALKALINE PHOSPHATASE 237 U/L (45-117); ALT (GPT) 72 U/L (12-78); ANION GAP 15 MEQ/L (5-15); AST (GOT) 83 U/L (15-37); BICARBONATE 29.4 MEQ/L (21.0-32.0); BLOOD UREA NITROGEN 115 MG/DL (7-18); CHLORIDE 99 MEQ/L (98-107); GLOMERULAR FILTRATION RATE 5 ML/MIN (>89); POTASSIUM 6.5 MEQ/L (3.5-5.1); SODIUM (NA) 143 MEQ/L (136-145); TOTAL BILIRUBIN ADULT 1.3 MG/DL (0.2-1.0)
[2016-12-24] MEDS: SODIUM POLYSTYRENE SULFONATE SUSP 15 GM/60 ML CUP NG SCH (21:50)
[2016-12-25] VITALS (19 sets, daily range): BP systolic 104–133; BP diastolic 64–84; PULSE 116–138; RESP 17–19; TEMP 99–100.8; O2SAT 92–98
[2016-12-25] MEDS: CHLORHEXIDINE GLUCONATE 2 % 1 PACK (2 CLOTHS) TOP SCH (03:00)
[2016-12-25] MEDS: LABETALOL HCL 200 MG TAB PO SCH ×3 (03:29→18:48)
[2016-12-25] MEDS: PIPERACIL-TAZO 2.25 GM PREMIX 50 ML IV SCH ×3 (03:30→18:47)
[2016-12-25] MEDS: SODIUM POLYSTYRENE SULFONATE SUSP 15 GM/60 ML CUP NG SCH ×2 (03:30→06:22)
[2016-12-25 05:12] LABS: BICARBONATE 26.7 MEQ/L (21.0-32.0)
[2016-12-25 05:17] LABS: POTASSIUM 6.9 MEQ/L (3.5-5.1)
[2016-12-25] MEDS: ALBUMIN HUMAN 25% 25 GM/100 ML BAGP IV PRN (09:24)
[2016-12-25] MEDS: HEPARIN SODIUM - IV 10,000 UNITS/10 ML VIAL PRN (09:24)
[2016-12-25] MEDS: GENTAMICIN SULFATE (DIALYSIS USE ONLY) 20 MG/2 ML VIAL IV PRN (09:25)
[2016-12-25] MEDS: SODIUM CHLOR 0.9% 1000 ML INJ 1,000 ML IV PRN (09:26)
[2016-12-25] MEDS: MANNITOL 12.5 GM/50 ML VIAL IV PRN (09:26)
[2016-12-25] MEDS: levETIRAcetam INJ 500 MG in SODIUM CHLORIDE 0.9% INJ 100 ML IV SCH ×2 (09:49→21:54)
[2016-12-25] MEDS ORDERED: INFLUENZA VIRUS VACCINE (QUADRIVALENT) 0.5 ML SYR IM ONE (10:00)
[2016-12-25] MEDS ORDERED: PNEUMOCOCCAL POLYVALENT INJ 25 MCG/0.5 ML SYR IM ONE (10:00)
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
[2016-12-25] MEDS ORDERED: METOPROLOL TARTRATE 5 MG/5 ML VIAL IV PUSH ONE (18:15)
[2016-12-25] MEDS: NOREPINEPHRINE 4 MG/NS 250 ML IV SCH ×2 (18:47)
[2016-12-25] MEDS: RESP: ALBUTEROL 2.5 MG/IPRATROPIUM 0.5 MG NEB (PRN) NEB ×2 (20:30→23:32)
[2016-12-26] VITALS (19 sets, daily range): BP systolic 115–155; BP diastolic 68–95; PULSE 125–141; RESP 18–22; TEMP 99.7–101.7; O2SAT 94–99
[2016-12-26] MEDS: LABETALOL HCL 200 MG TAB PO SCH ×3 (02:41→18:39)
[2016-12-26] MEDS: PIPERACIL-TAZO 2.25 GM PREMIX 50 ML IV SCH ×3 (02:41→18:12)
[2016-12-26] MEDS: RESP: ALBUTEROL 2.5 MG/IPRATROPIUM 0.5 MG NEB (PRN) NEB ×2 (03:42→08:04)
[2016-12-26] MEDS: CHLORHEXIDINE GLUCONATE 2 % 1 PACK (2 CLOTHS) TOP SCH (04:00)
[2016-12-26 06:12] LABS: BICARBONATE 28.9 MEQ/L (21.0-32.0); POTASSIUM 6.5 MEQ/L (3.5-5.1)
[2016-12-26 06:38] LABS: BLOOD GAS BASE EXCESS -2.6 mmol/L (-2-2); BLOOD GAS CARBOXYHEMOGLOBIN 0.8 % (0-4); BLOOD GAS HCO3 25 mmol/L (22-26); BLOOD GAS METHEMOGLOBIN 0.9 % (0-2); BLOOD GAS O2 HGB SATURATION 97 % (90-100); BLOOD GAS OXYGEN CONTENT 12.8 Vol % (12.0-20.0); BLOOD GAS PCO2 67 mmHg (38-42); BLOOD GAS PO2 131 mmHg (61-120); BLOOD GAS TOTAL HGB 9.3 G/DL (12.0-16.0); CRITICAL VALUE YES; OXYGEN DEVICE VENTILATOR; TEMP CORR TO 98.6
[2016-12-26 06:39] LABS: DRAW SITE ART LINE; FIO2 100 %; STAT NO; VENT SETTINGS PRVC/AC
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
[2016-12-26 08:14] LABS: BLOOD GAS BASE EXCESS -2.5 mmol/L (-2-2); BLOOD GAS CARBOXYHEMOGLOBIN 0.9 % (0-4); BLOOD GAS HCO3 23 mmol/L (22-26); BLOOD GAS METHEMOGLOBIN 0.8 % (0-2); BLOOD GAS O2 HGB SATURATION 97 % (90-100); BLOOD GAS OXYGEN CONTENT 11.5 Vol % (12.0-20.0); BLOOD GAS PCO2 44 mmHg (38-42); BLOOD GAS PO2 145 mmHg (61-120); BLOOD GAS TOTAL HGB 8.2 G/DL (12.0-16.0); CRITICAL VALUE NO; OXYGEN DEVICE VENTILATOR; TEMP CORR TO 98.6; VENT SETTINGS PRVC/AC
[2016-12-26 08:15] LABS: DRAW SITE ART LINE; FIO2 100 %; STAT NO
[2016-12-26] MEDS: levETIRAcetam INJ 500 MG in SODIUM CHLORIDE 0.9% INJ 100 ML IV SCH ×2 (08:32→21:20)
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
[2016-12-26] MEDS: SODIUM CHLOR 0.9% 1000 ML INJ 1,000 ML IV PRN (12:56)
[2016-12-26] MEDS: ALBUMIN HUMAN 25% 25 GM/100 ML BAGP IV PRN ×2 (12:56→12:57)
[2016-12-26] MEDS: GENTAMICIN SULFATE (DIALYSIS USE ONLY) 20 MG/2 ML VIAL IV PRN (12:57)
[2016-12-26] MEDS: HEPARIN SODIUM - IV 10,000 UNITS/10 ML VIAL PRN (12:57)
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
[2016-12-27] VITALS (12 sets, daily range): BP systolic 113–126; BP diastolic 70–82; PULSE 115–135; RESP 22; TEMP 98.2–100.6; O2SAT 91–98
[2016-12-27] MEDS: LABETALOL HCL 200 MG TAB PO SCH ×2 (02:49→10:52)
[2016-12-27] MEDS: PIPERACIL-TAZO 2.25 GM PREMIX 50 ML IV SCH ×2 (02:49→10:00)
[2016-12-27] MEDS: CHLORHEXIDINE GLUCONATE 2 % 1 PACK (2 CLOTHS) TOP SCH (04:00)
[2016-12-27 07:21] LABS: BICARBONATE 26.5 MEQ/L (21.0-32.0); POTASSIUM 3.7 MEQ/L (3.5-5.1)
[2016-12-27] MEDS: levETIRAcetam INJ 500 MG in SODIUM CHLORIDE 0.9% INJ 100 ML IV SCH (08:15)
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
== END 2016-12-27 18:06 | disposition expired | DRG 207 ==
LOC: NEPE 18:43 → NEDA 19:16 → EDBD 19:16 → N03B 20:44
PROVIDERS: ADMIT Surgery Surgical Critical Care; ATTEND Surgery Surgical Critical Care
PROC: 5A1955Z Respiratory Ventilation, Greater than 96 Consecutive Hours (ICD-10-PCS; principal; 2016-12-16)
PROC: 0T9B70Z Drainage of Bladder with Drainage Device, Via Natural or Artificial Opening (ICD-10-PCS; 2016-12-16)
PROC: 03HY32Z Insertion of Monitoring Device into Upper Artery, Percutaneous Approach (ICD-10-PCS; 2016-12-17)
PROC: 6A4Z0ZZ Hypothermia, Single (ICD-10-PCS; 2016-12-17)
PROC: 4A133B1 Monitoring of Arterial Pressure, Peripheral, Percutaneous Approach (ICD-10-PCS; 2016-12-17)
PROC: 4A133J1 Monitoring of Arterial Pulse, Peripheral, Percutaneous Approach (ICD-10-PCS; 2016-12-17)
PROC: 05HN33Z Insertion of Infusion Device into Left Internal Jugular Vein, Percutaneous Approach (ICD-10-PCS; 2016-12-20)
PROC: 5A1D60Z (ICD-10-PCS; 2016-12-20)
DX: J96.01 Acute respiratory failure with hypoxia (principal); G93.6 Cerebral edema; N17.0 Acute kidney failure with tubular necrosis; I46.9 Cardiac arrest, cause unspecified; G93.1 Anoxic brain damage, not elsewhere classified; J69.0 Pneumonitis due to inhalation of food and vomit; E87.2 Acidosis; E87.0 Hyperosmolality and hypernatremia; W69.XXXA Accidental drowning and submersion while in natural water, initial encounter; Y93.11 Activity, swimming; Y92.832 Beach as the place of occurrence of the external cause; Y99.9 Unspecified external cause status; E87.5 Hyperkalemia; G25.3 Myoclonus; E87.6 Hypokalemia; Z51.5 Encounter for palliative care; E87.70 Fluid overload, unspecified; I10 Essential (primary) hypertension; R19.7 Diarrhea, unspecified; Z99.2 Dependence on renal dialysis; Z23 Encounter for immunization
CPT/HCPCS: 36556; 36600; 70450; 70551; 71010; 72125; 76937; 78606; 80048; 80053; 80069; 80074; 80307; 81001; 82272; 82550; 82552; 82805; 82948; 83605; 83690; 83735; 84100; 84132; 84155; 84484; 85007; 85025; 85027; 85384; 85610; 85730; 86850; 86900; 86901; 87040; 87070; 87086; 87205; 87493; 87641; 90686; 90732; 90935; 93005; 94003; 94640; 94664; 95819; 96374; 96375; A9539; C9113; J0360; J0610; J1580; J1644; J1650; J1953; J2060; J2150; J2250; J2543; J3010; J3370; J3480; J7030; J7050; P9047; Q2038